=== PATIENT | female | born 1950 | race American Indian/Alaskan Native ===

== ENCOUNTER 2017-01-19 07:51 | Emergency (ER) | payer MEDICARE ==
[2017-01-19 08:11] VITALS: BP 130/81
--- NOTE | 2017-01-19 09:11 | Emergency Department Report ---
HPI - General Chief Complaint: Earache Time Seen by Provider: 01/19/17 08:58 - HPI HPI: Patient complaining of right ear pain for the past 7 days. She says she went to the [facility] and to follow-up in 2-3 weeks for this cerumen impaction. She was seen at 01/10/2017 and was given prescription for amoxicillin but she said is not helping and then her ear is straight and in. Faria 10. Fever chills. Denies any nausea or vomiting.. Denies any injury to the ear. Patient said that she does not have a primary care physician he only has a psychiatrist. He is requesting to be referred to a primary care physician. ED Past Medical Hx - Past Medical History Previous Medical History?: Yes Hx Hypertension: Yes Hx GERD: Yes Hx Psychiatric Treatment: Yes (bipolar disorder) Hx Dementia: Yes Additional medical history: Infections viral hepatis - Surgical History Past Surgical History?: No - Family History Family history: hypertension - Social History Smoking Status: Never Smoker Substance Use Type: None - Medications Home Medications: Home Medications Medication Instructions Recorded Confirmed Last Taken Type Cefdinir 300 mg PO BID #20. capsule 01/19/17 Unknown Rx Ciprofloxacin 0.2%(Nf) 4 drops OTIC BID #1 bottle 01/19/17 Unknown Rx [Ciprofloxacin Otic 0.2%(Nf)] ED Review of Systems ROS: Stated complaint: BLOCKAGE IN EAR Other details as noted in HPI Comment: All other systems reviewed and negative Constitutional: denies: chills, fever Eyes: denies: eye pain, eye discharge, vision change ENT: ear pain. denies: throat pain, dental pain, congestion Respiratory: no symptoms reported Cardiovascular: denies: chest pain, palpitations, edema, syncope Gastrointestinal: denies: nausea, vomiting Musculoskeletal: denies: back pain, arthralgia, myalgia Skin: denies: rash Neurological: denies: headache, weakness, numbness, paresthesias, confusion, abnormal gait, vertigo Physical Exam - Physical Exam Vital Signs: Vital Signs 01/19/17 07:57 Temperature 98.5 F Pulse Rate 70 Respiratory 16 Rate Blood Pressure 130/81 O2 Sat by Pulse 99 Oximetry General: This 66-year-old female well-nourished well-developed in no acute distress Physical Exam: Head: Normocephalic atraumatic Mouth: Moist, no pharyngeal exudate or erythema. Uvula is midline and oral airway is patent. No gingival enlargement or dental tenderness. No facial swelling. No peritonsillar abscesses. Neck: Supple, no C-spine tenderness, no tracheal deviation. Nontender to palpate. no adenopathy Ears: RT TM erythema and loss of bony landmarks . RT EAC with redness swelling . Rt tragus TTP. No drainage. LT TM and EAC with normal exam Eyes: Bilateral pupils equal and reactive to light, bilateral EOM intact. Bilateral sclera and conjunctiva without injection. Normal accommodation Nose: Mucosa moist, and NK appearance .maxillary and frontal sinus non-tender to palpate. Lungs: Clear to auscultate bilaterally no rhonchi wheezes or rales. Normal work of breathing extremity; No CCE. +2 pulses. No neurovascular compromise Cardiovascular: S1-S2, regular rate rhythm. No murmurs. Skin: clean Dry and intact no rash no lesions Psych: Normal mood and behavior ED Course Vital Signs 01/19/17 07:57 Temperature 98.5 F Pulse Rate 70 Respiratory 16 Rate Blood Pressure 130/81 O2 Sat by Pulse 99 Oximetry - Reevaluation(s) Reevaluation #1: 01/19/17 09:23 Given [place] 2/325 mg 2 tabs in the emergency room for right ear pain. ED Medical Decision Making - Medical Decision Making ED course: PT With this presentation of right ear pain. He was found to have right otitis media and otitis externa. Discussed treatment plan with this patient and she voiced understanding. 5/325 mg 2 tablet given in the emergency room for pain. This patient that well referred her to Dr. Gaby Reynoso for primary care to call today to schedule an appointment for a new patient visit. She decided home with prescription for Ceftin ear and ciprofloxacin Otic. Discharge home via Medical transport. Critical care attestation.: If time is entered above; I have spent that time in minutes in the direct care of this critically ill patient, excluding procedure time. ED Disposition Clinical Impression: Otalgia, right ear Otitis media Qualifiers: Otitis media type: unspecified Laterality: right Chronicity: unspecified Qualified Code(s): H66.91 - Otitis media, unspecified, right ear Otitis externa Qualifiers: Otitis externa type: unspecified type Laterality: right Chronicity: acute Qualified Code(s): H60.501 - Unspecified acute noninfective otitis externa, right ear Disposition: DC-01 TO HOME OR SELFCARE Is pt being admited?: No Does the pt Need Aspirin: No Condition: Stable Instructions: Otitis Externa (ED), Otitis Media (ED) Additional Instructions: Please see primary care physician referral and discharged Take Medication as prescribed Prescriptions: Cefdinir 300 mg PO BID #20. capsule Ciprofloxacin 0.2%(Nf) [Ciprofloxacin Otic 0.2%(Nf)] 4 drops OTIC BID #1 bottle Referrals: JOHN KING MD [Staff Physician] - 01/23/17
[2017-01-19] MEDS ORDERED: NORCO 5/325 PO ONE (09:23)
== END 2017-01-19 09:49 | disposition home or self-care (01) ==
LOC: ED 07:51
DX: H66.91 Otitis media, unspecified, right ear (principal); H60.501 Unspecified acute noninfective otitis externa, right ear; I10 Essential (primary) hypertension; K21.9 Gastro-esophageal reflux disease without esophagitis; F31.9 Bipolar disorder, unspecified; F03.90 Unspecified dementia, unspecified severity, without behavioral disturbance, psychotic disturbance, mood disturbance, and anxiety
CPT/HCPCS: 99283

== ENCOUNTER 2018-11-11 16:19 | Inpatient (IN) | payer MEDICARE ==
--- NOTE | 2018-11-11 16:56 | Emergency Department Report ---
ED Dizziness HPI - General Chief Complaint: Dizziness Stated Complaint: INA,WEAKNESS Time Seen by Provider: 11/11/18 16:45 Source: EMS Mode of arrival: Stretcher Limitations: No Limitations - History of Present Illness Initial Comments: Patient is a 67-year-old female that presents emergency room with complaints of dizziness, near syncope and unsteady gait that started this morning. Patient states that she took her nighttime psychiatric medications this morning by accident. Patient states that she normally takes lisinopril, Lasix, thyroid medication, GERD medication, potassium in the morning and normally takes Cogentin, Lamictal, Seroquel and Geodon at night. Patient states she actually took her nighttime meds this morning with all of her other blood pressure medications. Patient states she has felt dizzy and lightheaded since about 30 minutes after taking the medications. Patient states she is unable to walk due to an unsteady gait and near syncopal episodes when getting up. Patient denies chest pain. Patient complains of dyspnea on exertion. EMS report received. EMS states the patient was hypotensive and pale upon arrival MD Complaint: dizziness, lightheadedness, near syncope, difficulty walking Description: "room spinning", lightheadedness, off-balance, difficulty walking, near-syncope History of Same: No History of Trauma: No Severity: severe Improves With: rest Worsens With: movement, position, exertion Associated Symptoms: malaise, shortness of breath, weakness. denies: chest pain, confusion, cough, diaphoresis, fever/chills, loss of appetite, rash, seizure, syncope - Related Data Previous Rx's Medication Instructions Recorded Last Taken Type Cefdinir 300 mg PO BID #20. capsule 01/19/17 Unknown Rx Ciprofloxacin 0.2%(Nf) 4 drops OTIC BID #1 bottle 01/19/17 Unknown Rx [Ciprofloxacin Otic 0.2%(Nf)] Allergies Allergy/AdvReac Type Severity Reaction Status Date / Time No Known Allergies Allergy Verified 11/11/18 23:54 ED Review of Systems ROS: Stated complaint: INA,WEAKNESS Other details as noted in HPI Constitutional: malaise, weakness. denies: chills, fever Eyes: denies: eye pain, eye discharge, vision change ENT: denies: ear pain, throat pain Respiratory: SOB with exertion. denies: cough, wheezing Cardiovascular: denies: chest pain, palpitations Endocrine: no symptoms reported Gastrointestinal: denies: abdominal pain, nausea, diarrhea Genitourinary: denies: urgency, dysuria, discharge Musculoskeletal: denies: back pain, joint swelling, arthralgia Skin: denies: rash, lesions Neurological: weakness, abnormal gait. denies: headache, paresthesias Psychiatric: denies: anxiety, depression Hematological/Lymphatic: denies: easy bleeding, easy bruising ED Past Medical Hx - Past Medical History Previous Medical History?: Yes Hx Hypertension: Yes Hx GERD: Yes Hx Psychiatric Treatment: Yes (bipolar disorder) Hx Dementia: Yes Additional medical history: Infections viral hepatis - Surgical History Past Surgical History?: Yes - Family History Family history: no significant - Social History Smoking Status: Current Every Day Smoker Substance Use Type: None - Medications Home Medications: Home Medications Medication Instructions Recorded Confirmed Last Taken Type Cefdinir 300 mg PO BID #20. capsule 01/19/17 Unknown Rx Ciprofloxacin 0.2%(Nf) 4 drops OTIC BID #1 bottle 01/19/17 Unknown Rx [Ciprofloxacin Otic 0.2%(Nf)] ED Physical Exam - General Limitations: No Limitations General appearance: alert, in no apparent distress - Head Head exam: Present: atraumatic, normocephalic - Eye Eye exam: Present: normal appearance, PERRL Pupils: Present: normal accommodation - ENT ENT exam: Present: mucous membranes dry - Neck Neck exam: Present: normal inspection - Respiratory Respiratory exam: Present: normal lung sounds bilaterally. Absent: respiratory distress, wheezes, rales - Cardiovascular Cardiovascular Exam: Present: regular rate, normal rhythm. Absent: systolic murmur, diastolic murmur, rubs, gallop - GI/Abdominal GI/Abdominal exam: Present: soft, normal bowel sounds. Absent: distended, tenderness, guarding - Rectal Rectal exam: Present: deferred - Extremities Exam Extremities exam: Present: normal inspection - Back Exam Back exam: Present: normal inspection - Neurological Exam Neurological exam: Present: alert, oriented X3 - Psychiatric Psychiatric exam: Present: normal affect, normal mood - Skin Skin exam: Present: warm, dry, intact, normal color. Absent: rash ED Course Vital Signs 11/11/18 11/11/18 11/11/18 16:42 16:47 18:47 Temperature 98.6 F Pulse Rate 56 L 59 L 72 Respiratory 18 18 Rate Blood Pressure 106/59 Blood Pressure 104/65 [Right] O2 Sat by Pulse Oximetry 11/11/18 11/11/18 11/11/18 19:16 19:46 20:16 Temperature 97.5 F L Pulse Rate 54 L 53 L 69 Respiratory 12 11 L 12 Rate Blood Pressure 114/64 130/62 114/63 Blood Pressure 114/64 [Right] O2 Sat by Pulse 97 Oximetry 11/11/18 11/11/18 11/12/18 22:46 23:00 00:02 Temperature Pulse Rate 52 L 51 L 62 Respiratory 12 11 L 15 Rate Blood Pressure 114/63 114/63 Blood Pressure 139/73 [Right] O2 Sat by Pulse 96 Oximetry - Reevaluation(s) Reevaluation #1: 11/11/18 23:45 Discussed all results with patient. Patient agrees with plan of care and admission. - Consultations Consultation #1: Hospitalist consulted for admission. Hospitalist to admit patient and assume care of patient. 11/11/18 23:45 - EJ/Peripheral Line Neck R Time Out Performed: Yes Indications: nurses unable to establis, multiple IV sites needed Skin Cleansed in Sterile Fashion: Yes Size: 20 Dressing Placed: Tegaderm Patient Tolerated Procedure: well ED Medical Decision Making - Lab Data Result diagrams: 11/11/18 18:15 11/11/18 18:15 - EKG Data -: EKG Interpreted by Me EKG shows normal: sinus rhythm, axis, intervals, QRS complexes, ST-T waves Rate: normal - EKG Data Interpretation: [facility] - Radiology Data Radiology results: report reviewed, image reviewed interpreted by me: Negative chest x-ray PROCEDURE: CT ANGIO CHEST TECHNIQUE: Computerized tomographic angiography of the chest was performed after the IV injection of iodinated nonionic contrast including image processing. The image data was postprocessed using 2-dimensional multiplanar reformatted (MPR) and 3-dimensional (MIP and/or volume rendered) techniques. Automated exposure control, adjustment of mA and/or kV according to patient size, or iterative reconstruction dose optimization techniques were utilized. CT DOSE LENGTH PRODUCT: 781.9 mGycm HISTORY: syncope. elevated d-dimer COMPARISONS: None . FINDINGS: There is a loculated lucency. No obvious pulmonary arterial filling defects are identified. Aorta is of normal caliber without evidence of the hilar structures are within normal limits. There is no lymphadenopathy. Thyroid demonstrates normal density. Bilateral lungs and pleural spaces.. Liver demonstrates nodular outlines consistent with cirrhosis. There are a few luis e cified nodules in the most likely representing calcified resendez. Mild to moderate degree of splenome robert is identified with varices. Multiple small calculi are noted in the gallbladder. IMPRESSION: There is suboptimal opacification of pulmonary arterial tree. No obvious evidence of pulmonary embolism. Cirrhosis is noted with splenomegaly and varices Cholelithiasis - Medical Decision Making Patient is a 67-year-old female that presents emergency room with complaints of dizziness and medication error. Patient stated she took her nighttime psychiatric medications in the morning with all her other blood pressure medications which caused her to be dizzy and had near syncope and hypotensive. Patient required saline to support her blood pressure. Patient noted to have an elevated d-dimer and a CTA was done. CTA was negative. Chest x-ray negative. Labs unremarkable. Patient responded well to treatment. Patient will be admitted to the hospitalist service for further evaluation and treatment. Patient agrees to plan of care. Patient found to have a UTI and given antibiotics. - Differential Diagnosis dizziness. Medication error. Near-syncope. PE Critical Care Time: Yes Critical care attestation.: If time is entered above; I have spent that time in minutes in the direct care of this critically ill patient, excluding procedure time. Critical Care Time: 45 minutes ED Disposition Clinical Impression: Dizziness, Medication error, Near syncope, Elevated d-dimer Hypotension Qualifiers: Hypotension type: unspecified hypotension type Qualified Code(s): I95.9 - Hypotension, unspecified UTI (urinary tract infection) Qualifiers: Urinary tract infection type: acute cystitis Hematuria presence: with hematuria Qualified Code(s): N30.01 - Acute cystitis with hematuria Disposition: OP ADMIT IP TO THIS HOSP Is pt being admited?: Yes Does the pt Need Aspirin: No Condition: Critical Time of Disposition: 23:40
[2018-11-11] MEDS ORDERED: NACL 0.9% 1000 ML 1,000 ML IV ONE (16:59)
[2018-11-11 19:05] LABS: Hematocrit 37.7 % (30.3-42.9); Hemoglobin 13.4 gm/dl (10.1-14.3); Mean Corpuscular HGB Conc 35 % (30-34); Mean Corpuscular Volume 95 fl (79-97); Red Blood Count 3.99 M/mm3 (3.65-5.03); Red Cell Distribution Width 15.5 % (13.2-15.2)
--- NOTE | 2018-11-11 19:09 | XRay Report ---
PROCEDURE: XR CHEST 1V AP HISTORY: Lightheadedness/Dizziness FINDINGS: Single frontal view of the chest was acquired. The heart is top normal in size. The lungs a ppear clear. The pleura and mediastinum are within normal limits. IMPRESSION: No active disease in the chest This document is electronically signed by Juan Pablo Hernandes MD., November 11 2018 07:07:47 PM ET
[2018-11-11 19:20] LABS: Creatine Kinase MB 2.4 ng/mL (0.0-4.0)
[2018-11-11 19:24] LABS: Alanine Aminotransferase 17 units/L (7-56); Albumin 3.6 g/dL (3.9-5); BUN/Creatinine Ratio 19; Blood Urea Nitrogen 13 mg/dL (7-17); Calcium 8.7 mg/dL (8.4-10.2); Hemolysis Index 8
[2018-11-11 19:58] LABS: Total Cells Counted 100
[2018-11-11 19:59] LABS: Ovalocytes 1+; Poikilocytosis Few
[2018-11-11 20:00] LABS: Platelet Count 27 K/mm3 (140-440); Platelet Estimate Appears Decreased
[2018-11-11 21:01] LABS: Bacteria,Urine 1+ /HPF (Negative); Bilirubin,Urine NEG (Negative); Blood,Urine NEG (Negative); Color,Urine Yellow (Yellow); Mucus,Urine FEW /HPF; Protein,Urine <15 mg/dL mg/dL (Negative); Urobilinogen,Urine < 2.0 mg/dL (<2.0)
[2018-11-11 21:09] LABS: Amphetamine Screen,Urine PRESUMPTIVE NEGATIVE; Benzodiazepines Screen,Urine PRESUMPTIVE NEGATIVE; Cannabinoid Screen,Urine PRESUMPTIVE NEGATIVE; Cocaine Screen,Urine PRESUMPTIVE NEGATIVE; Methadone Screen,Urine PRESUMPTIVE NEGATIVE; Opiate Screen,Urine PRESUMPTIVE NEGATIVE
--- NOTE | 2018-11-11 21:59 | Cat Scan Report ---
PROCEDURE: CT ANGIO CHEST TECHNIQUE: Computerized tomographic angiography of the chest was performed after the IV injection of iodinated nonionic contrast including image processing. The image data was postprocessed using 2-di mensional multiplanar reformatted (MPR) and 3-dimensional (MIP and/or volume rendered) techniques. Au tomated exposure control, adjustment of mA and/or kV according to patient size, or iterative reconstr uction dose optimization techniques were utilized. CT DOSE LENGTH PRODUCT: 781.9 mGycm HISTORY: syncope. elevated d-dimer COMPARISONS: None . FINDINGS: There is a loculated lucency. No obvious pulmonary arterial filling defects are identified. Aorta is of normal caliber without evidence of the hilar structures are within normal limits. There is no lymp hadenopathy. Thyroid demonstrates normal density. Bilateral lungs and pleural spaces.. Liver demonstr ates nodular outlines consistent with cirrhosis. There are a few calcified nodules in the most likely representing calcified resendez. Mild to moderate degree of splenomegaly is identified with varices. Mu ltiple small calculi are noted in the gallbladder. IMPRESSION: There is suboptimal opacification of pulmonary arterial tree. No obvious evidence of pulm onary embolism. Cirrhosis is noted with splenomegaly and varices Cholelithiasis This document is electronically signed by Joe Cristina MD., November 11 2018 09:57:56 PM ET
[2018-11-11] MEDS ORDERED: MAXIPIME/NS 1 GM/100 ML 1 GM/100 ML BAG IV ONE (23:40)
[2018-11-11] MEDS ORDERED: SODIUM CHLORIDE FLUSH SYRINGE 10 ML IV PRN (23:43)
[2018-11-11] MEDS ORDERED: ZOFRAN IV PRN (23:43)
[2018-11-11] MEDS ORDERED: TYLENOL PO PRN (23:43)
[2018-11-11] MEDS ORDERED: DILAUDID ONE (23:51)
[2018-11-11] MEDS ORDERED: DILAUDID IV ONE (23:52)
--- NOTE | 2018-11-12 00:08 | History and Physical Report ---
History of Present Illness Date of examination: 11/11/18 Date of admission: 11/11/2018 Chief complaint: "I fell" History of present illness: Patient is a 67-year-old female with history of bipolar disorder and cirrhosis who presented to the ED via EMS on account of a fall. Patient stated that she mistakenly took her psych medications together with her blood pressure medications in the morning as opposed to in the evening. Subsequently, she started feeling dizziness with leg weakness and then fell, landing on her right side without hitting her head on the floor. She denies syncope or loss of consciousness. No headaches, nausea, vomiting, chest pain, shortness of breath, palpitation, cough, sore throat, runny nose or congestion, fever, chills, leg swelling, orthopnea or PND. She denies abdominal pain, constipation, diarrhea, dysuria or frequency. She has chronic back pain. EMS reported that the patient was hypotensive on arrival. Past History Past Medical History: hypertension, hypothyroidism, other (bipolar disorder, cirrhosis of the liver secondary to chronic hepatitis C virus infection) Past Surgical History: Other (neck and left shoulder surgeries) Social history: smoking (patient has 8 years history of cigarette smoking. She currently smokes few sticks per day), other (she denies alcohol or illicit drug use) Family history: other (reviewed and noncontributory) Medications and Allergies Allergies Allergy/AdvReac Type Severity Reaction Status Date / Time No Known Allergies Allergy Verified 11/11/18 23:54 Home Medications Medication Instructions Recorded Confirmed Last Taken Type Cefdinir 300 mg PO BID #20. capsule 01/19/17 Unknown Rx Ciprofloxacin 0.2%(Nf) 4 drops OTIC BID #1 bottle 01/19/17 Unknown Rx [Ciprofloxacin Otic 0.2%(Nf)] Active Meds: Active Medications Acetaminophen (Tylenol) 650 mg PO Q4H PRN PRN Reason: Pain MILD(1-3)/Fever >100.5/MARK Cefepime HCl (Maxipime/Ns 1 Gm/100 Ml) 1 gm in 100 mls @ 200 mls/hr IV ONCE ONE; Protocol Stop: 11/12/18 00:09 Last Admin: 11/12/18 00:02 Dose: 200 mls/hr Documented by: Ceftriaxone Sodium (Rocephin/Ns 1 Gm/50 Ml) 1 gm in 50 mls @ 100 mls/hr IV Q24HR CONSTANCE; Protocol Sodium Chloride (Nacl 0.9% 1000 Ml) 1,000 mls @ 100 mls/hr IV DIRECT CONSTANCE Ondansetron HCl (Zofran) 4 mg IV Q8H PRN PRN Reason: Nausea And Vomiting Sodium Chloride (Sodium Chloride Flush Syringe 10 Ml) 10 ml IV BID CONSTANCE Sodium Chloride (Sodium Chloride Flush Syringe 10 Ml) 10 ml IV PRN PRN PRN Reason: LINE FLUSH Review of Systems All systems: negative (except as documented in the HPI, all other systems were reviewed and negative) Exam - Constitutional Vitals: Temp Pulse Resp BP Pulse Ox 97.5 F L 62 15 139/73 96 11/11/18 19:46 11/12/18 00:02 11/12/18 00:02 11/12/18 00:02 11/12/18 00:02 General appearance: Present: no acute distress, obese - EENT Eyes: Present: PERRL, EOM intact ENT: hearing intact, clear oral mucosa - Neck Neck: Present: supple, normal ROM - Respiratory Respiratory effort: normal Respiratory: bilateral: CTA - Cardiovascular Rhythm: regular Heart Sounds: Present: S1 & S2. Absent: rub, click - Extremities Extremities: No edema Peripheral Pulses: within normal limits - Abdominal General gastrointestinal: Present: soft, non-tender, non-distended, normal bowel sounds Female genitourinary: Present: deferred - Integumentary Integumentary: Present: clear, warm, dry - Musculoskeletal Musculoskeletal: gait normal, strength equal bilaterally - Psychiatric Psychiatric: appropriate mood/affect, intact judgment & insight - Neurologic Neurologic: CNII-XII intact, moves all extremities Results - Labs CBC & Chem 7: 11/11/18 18:15 11/11/18 18:15 Labs: Laboratory Last Values WBC 2.0 K/mm3 (4.5-11.0) L 11/11/18 18:15 RBC 3.99 M/mm3 (3.65-5.03) 11/11/18 18:15 Hgb 13.4 gm/dl (10.1-14.3) 11/11/18 18:15 Hct 37.7 % (30.3-42.9) 11/11/18 18:15 MCV 95 fl (79-97) 11/11/18 18:15 MCH 34 pg (28-32) H 11/11/18 18:15 MCHC 35 % (30-34) H 11/11/18 18:15 RDW 15.5 % (13.2-15.2) H 11/11/18 18:15 Plt Count 27 K/mm3 (140-440) L 11/11/18 18:15 Add Manual Diff Complete 11/11/18 18:15 Total Counted 100 11/11/18 18:15 Seg Neuts % (Manual) 68.0 % (40.0-70.0) 11/11/18 18:15 Band Neutrophils % 0 % 11/11/18 18:15 Lymphocytes % (Manual) 18.0 % (13.4-35.0) 11/11/18 18:15 Reactive Lymphs % (Man) 0 % 11/11/18 18:15 Monocytes % (Manual) 8.0 % (0.0-7.3) H 11/11/18 18:15 Eosinophils % (Manual) 4.0 % (0.0-4.3) 11/11/18 18:15 Basophils % (Manual) 2.0 % (0.0-1.8) H 11/11/18 18:15 Metamyelocytes % 0 % 11/11/18 18:15 Myelocytes % 0 % 11/11/18 18:15 Promyelocytes % 0 % 11/11/18 18:15 Blast Cells % 0 % 11/11/18 18:15 Nucleated RBC % Not Reportable 11/11/18 18:15 Seg Neutrophils # Man 1.4 K/mm3 (1.8-7.7) L 11/11/18 18:15 Band Neutrophils # 0.0 K/mm3 11/11/18 18:15 Lymphocytes # (Manual) 0.4 K/mm3 (1.2-5.4) L 11/11/18 18:15 Abs React Lymphs (Man) 0.0 K/mm3 11/11/18 18:15 Monocytes # (Manual) 0.2 K/mm3 (0.0-0.8) 11/11/18 18:15 Eosinophils # (Manual) 0.1 K/mm3 (0.0-0.4) 11/11/18 18:15 Basophils # (Manual) 0.0 K/mm3 (0.0-0.1) 11/11/18 18:15 Metamyelocytes # 0.0 K/mm3 11/11/18 18:15 Myelocytes # 0.0 K/mm3 11/11/18 18:15 Promyelocytes # 0.0 K/mm3 11/11/18 18:15 Blast Cells # 0.0 K/mm3 11/11/18 18:15 WBC Morphology Not Reportable 11/11/18 18:15 Hypersegmented Neuts Not Reportable 11/11/18 18:15 Hyposegmented Neuts Not Reportable 11/11/18 18:15 Hypogranular Neuts Not Reportable 11/11/18 18:15 Smudge Cells Not Reportable 11/11/18 18:15 Toxic Granulation Not Reportable 11/11/18 18:15 Toxic Vacuolation Not Reportable 11/11/18 18:15 Dohle Bodies Not Reportable 11/11/18 18:15 Pelger-Huet Anomaly Not Reportable 11/11/18 18:15 Preeti Rods Not Reportable 11/11/18 18:15 Platelet Estimate Appears decreased 11/11/18 18:15 Clumped Platelets Not Reportable 11/11/18 18:15 Plt Clumps, EDTA Not Reportable 11/11/18 18:15 Large Platelets Not Reportable 11/11/18 18:15 Giant Platelets Not Reportable 11/11/18 18:15 Platelet Satelliting Not Reportable 11/11/18 18:15 Plt Morphology Comment Not Reportable 11/11/18 18:15 RBC Morphology Not Reportable 11/11/18 18:15 Dimorphic RBCs Not Reportable 11/11/18 18:15 Polychromasia Not Reportable 11/11/18 18:15 Hypochromasia Not Reportable 11/11/18 18:15 Poikilocytosis Few 11/11/18 18:15 Anisocytosis Not Reportable 11/11/18 18:15 Microcytosis Not Reportable 11/11/18 18:15 Macrocytosis Not Reportable 11/11/18 18:15 Spherocytes Not Reportable 11/11/18 18:15 Pappenheimer Bodies Not Reportable 11/11/18 18:15 Sickle Cells Not Reportable 11/11/18 18:15 Target Cells Not Reportable 11/11/18 18:15 Tear Drop Cells Not Reportable 11/11/18 18:15 Ovalocytes 1+ 11/11/18 18:15 Helmet Cells Not Reportable 11/11/18 18:15 [place] Bodies Not Reportable 11/11/18 18:15 [place] Rings Not Reportable 11/11/18 18:15 [place] Cells Not Reportable 11/11/18 18:15 Bite Cells Not Reportable 11/11/18 18:15 Crenated Cell Not Reportable 11/11/18 18:15 Elliptocytes Not Reportable 11/11/18 18:15 Acanthocytes (Spur) Not Reportable 11/11/18 18:15 Rouleaux Not Reportable 11/11/18 18:15 Hemoglobin C Crystals Not Reportable 11/11/18 18:15 Schistocytes Not Reportable 11/11/18 18:15 Malaria parasites Not Reportable 11/11/18 18:15 Willie Bodies Not Reportable 11/11/18 18:15 Hem Pathologist Commnt No 11/11/18 18:15 D-Dimer 444.11 ng/mlDDU (0-234) H 11/11/18 18:15 Sodium 142 mmol/L (137-145) 11/11/18 18:15 Potassium 4.1 mmol/L (3.6-5.0) 11/11/18 18:15 Chloride 109.3 mmol/L (98-107) H 11/11/18 18:15 Carbon Dioxide 18 mmol/L (22-30) L 11/11/18 18:15 Anion Gap 19 mmol/L 11/11/18 18:15 BUN 13 mg/dL (7-17) 11/11/18 18:15 Creatinine 0.7 mg/dL (0.7-1.2) 11/11/18 18:15 Estimated GFR > 60 ml/min 11/11/18 18:15 BUN/Creatinine Ratio 19 % 11/11/18 18:15 Glucose 98 mg/dL (65-100) 11/11/18 18:15 Lactic Acid 1.80 mmol/L (0.7-2.0) 11/11/18 18:15 Calcium 8.7 mg/dL (8.4-10.2) 11/11/18 18:15 Total Bilirubin 1.70 mg/dL (0.1-1.2) H 11/11/18 18:15 AST 29 units/L (5-40) 11/11/18 18:15 ALT 17 units/L (7-56) 11/11/18 18:15 Alkaline Phosphatase 96 units/L (35-129) 11/11/18 18:15 Total Creatine Kinase 98 units/L (30-135) 11/11/18 18:15 CK-MB (CK-2) 2.4 ng/mL (0.0-4.0) 11/11/18 18:15 CK-MB (CK-2) Rel Index 2.4 (0-4) 11/11/18 18:15 Troponin T < 0.010 ng/mL (0.00-0.029) 11/11/18 18:15 Total Protein 5.5 g/dL (6.3-8.2) L 11/11/18 18:15 Albumin 3.6 g/dL (3.9-5) L 11/11/18 18:15 Albumin/Globulin Ratio 1.9 % 11/11/18 18:15 Urine Color Yellow (Yellow) 11/11/18 Unknown Urine Turbidity Clear (Clear) 11/11/18 Unknown Urine pH 5.0 (5.0-7.0) 11/11/18 Unknown Ur Specific [place] 1.012 (1.003-1.030) 11/11/18 Unknown Urine Protein <15 mg/dl mg/dL (Negative) 11/11/18 Unknown Urine Glucose (UA) Neg mg/dL (Negative) 11/11/18 Unknown Urine Ketones Neg mg/dL (Negative) 11/11/18 Unknown Urine Blood Neg (Negative) 11/11/18 Unknown Urine Nitrite Neg (Negative) 11/11/18 Unknown Urine Bilirubin Neg (Negative) 11/11/18 Unknown Urine Urobilinogen < 2.0 mg/dL (<2.0) 11/11/18 Unknown Ur Leukocyte Esterase Lg (Negative) 11/11/18 Unknown Urine WBC (Auto) 59.0 /HPF (0.0-6.0) H 11/11/18 Unknown Urine RBC (Auto) 5.0 /HPF (0.0-6.0) 11/11/18 Unknown U Epithel Cells (Auto) 3.0 /HPF (0-13.0) 11/11/18 Unknown Urine Bacteria (Auto) 1+ /HPF (Negative) 11/11/18 Unknown Urine Mucus Few /HPF 11/11/18 Unknown Urine Opiates Screen Presumptive negative 11/11/18 Unknown Urine Methadone Screen Presumptive negative 11/11/18 Unknown Ur Barbiturates Screen Presumptive negative 11/11/18 Unknown Ur Phencyclidine Scrn Presumptive negative 11/11/18 Unknown Ur Amphetamines Screen Presumptive negative 11/11/18 Unknown U Benzodiazepines Scrn Presumptive negative 11/11/18 Unknown Urine Cocaine Screen Presumptive negative 11/11/18 Unknown U Marijuana (THC) Screen Presumptive negative 11/11/18 Unknown Drugs of Abuse Note Disclamer 11/11/18 Unknown Assessment and Plan Assessment and plan: Orthostatic hypotension -Medication induced -Blood pressure responded to IV fluid in the ED, will monitor UTI -On IV antibiotic with Rocephin -Urine culture pending Metabolic acidosis -On IV fluid, will monitor bicarbonate level History of chronic hepatitis C virus infection -Status post treatment, resolved Cirrhosis of the liver -Secondary to the chronic hepatitis C virus infection -For outpatient follow-up Leukopenia -Likely secondary to the cirrhosis, will monitor level Acute on chronic thrombocytopenia -Likely secondary to the cirrhosis -Per patient, her baseline platelet level is between 44-50,000 -No evidence of active bleeding, will monitor level Elevated d-dimer -CTA chest negative for acute PE Hypothyroidism -Continue Synthroid Bipolar disorder -Continue home medications Obesity with BMI of 36.2 -Lifestyle modification recommended DVT prophylaxis with SCD due to the thrombocytopenia Disposition: For discharge when medically stable Time spent: 38 minutes
[2018-11-12] MEDS: NACL 0.9% 1000 ML 1,000 ML IV SCH ×3 (01:25→22:52)
--- NOTE | 2018-11-12 08:22 | Progress Note ---
Assessment and Plan Assessment and plan: --Orthostatic hypotension -Medication induced -Blood pressure responded to IV fluid in the ED, will monitor --UTI -On IV antibiotic with Rocephin -Urine culture pending --Metabolic acidosis -On IV fluid, will monitor bicarbonate level --History of chronic hepatitis C virus infection -Status post treatment, resolved --Cirrhosis of the liver -Secondary to the chronic hepatitis C virus infection -For outpatient follow-up --Leukopenia -Likely secondary to the cirrhosis, will monitor level --Acute on chronic thrombocytopenia -Likely secondary to the cirrhosis -Per patient, her baseline platelet level is between 44-50,000 -No evidence of active bleeding, will monitor level --Elevated d-dimer -CTA chest negative for acute PE --Hypothyroidism -Continue Synthroid --Bipolar disorder -Continue home medications --Obesity with BMI of 36.2 -Lifestyle modification recommended DVT prophylaxis with SCD due to the thrombocytopenia Disposition: For discharge when medically stable Time spent: 38 minutes History Interval history: Patient seen and examined medical records reviewed Patient is admitted with history of fall Patient feels better no new complaints Denies any headache or dizziness Vital signs reviewed Hospitalist Physical - Constitutional Vitals: Temp Pulse Resp BP Pulse Ox 98.0 F 57 L 18 115/65 96 11/12/18 01:20 11/12/18 01:20 11/12/18 01:20 11/12/18 01:20 11/12/18 01:20 General appearance: Present: no acute distress, well-nourished, obese - EENT Eyes: Present: PERRL, EOM intact - Neck Neck: Present: supple, normal ROM - Respiratory Respiratory effort: normal Respiratory: bilateral: diminished, negative: rales, rhonchi, wheezing - Cardiovascular Rhythm: regular Heart Sounds: Present: S1 & S2 - Extremities Extremities: no ischemia, No edema - Abdominal General gastrointestinal: soft, non-tender, non-distended, normal bowel sounds - Integumentary Integumentary: Present: clear, warm - Psychiatric Psychiatric: appropriate mood/affect, cooperative - Neurologic Neurologic: CNII-XII intact, moves all extremities Results - Labs CBC & Chem 7: 11/12/18 08:19 11/12/18 08:19 Labs: Laboratory Last Values WBC 2.0 K/mm3 (4.5-11.0) L 11/11/18 18:15 RBC 3.99 M/mm3 (3.65-5.03) 11/11/18 18:15 Hgb 13.4 gm/dl (10.1-14.3) 11/11/18 18:15 Hct 37.7 % (30.3-42.9) 11/11/18 18:15 MCV 95 fl (79-97) 11/11/18 18:15 MCH 34 pg (28-32) H 11/11/18 18:15 MCHC 35 % (30-34) H 11/11/18 18:15 RDW 15.5 % (13.2-15.2) H 11/11/18 18:15 Plt Count 27 K/mm3 (140-440) L 11/11/18 18:15 Add Manual Diff Complete 11/11/18 18:15 Total Counted 100 11/11/18 18:15 Seg Neuts % (Manual) 68.0 % (40.0-70.0) 11/11/18 18:15 Band Neutrophils % 0 % 11/11/18 18:15 Lymphocytes % (Manual) 18.0 % (13.4-35.0) 11/11/18 18:15 Reactive Lymphs % (Man) 0 % 11/11/18 18:15 Monocytes % (Manual) 8.0 % (0.0-7.3) H 11/11/18 18:15 Eosinophils % (Manual) 4.0 % (0.0-4.3) 11/11/18 18:15 Basophils % (Manual) 2.0 % (0.0-1.8) H 11/11/18 18:15 Metamyelocytes % 0 % 11/11/18 18:15 Myelocytes % 0 % 11/11/18 18:15 Promyelocytes % 0 % 11/11/18 18:15 Blast Cells % 0 % 11/11/18 18:15 Nucleated RBC % Not Reportable 11/11/18 18:15 Seg Neutrophils # Man 1.4 K/mm3 (1.8-7.7) L 11/11/18 18:15 Band Neutrophils # 0.0 K/mm3 11/11/18 18:15 Lymphocytes # (Manual) 0.4 K/mm3 (1.2-5.4) L 11/11/18 18:15 Abs React Lymphs (Man) 0.0 K/mm3 11/11/18 18:15 Monocytes # (Manual) 0.2 K/mm3 (0.0-0.8) 11/11/18 18:15 Eosinophils # (Manual) 0.1 K/mm3 (0.0-0.4) 11/11/18 18:15 Basophils # (Manual) 0.0 K/mm3 (0.0-0.1) 11/11/18 18:15 Metamyelocytes # 0.0 K/mm3 11/11/18 18:15 Myelocytes # 0.0 K/mm3 11/11/18 18:15 Promyelocytes # 0.0 K/mm3 11/11/18 18:15 Blast Cells # 0.0 K/mm3 11/11/18 18:15 WBC Morphology Not Reportable 11/11/18 18:15 Hypersegmented Neuts Not Reportable 11/11/18 18:15 Hyposegmented Neuts Not Reportable 11/11/18 18:15 Hypogranular Neuts Not Reportable 11/11/18 18:15 Smudge Cells Not Reportable 11/11/18 18:15 Toxic Granulation Not Reportable 11/11/18 18:15 Toxic Vacuolation Not Reportable 11/11/18 18:15 Dohle Bodies Not Reportable 11/11/18 18:15 Pelger-[place]uet Anomaly Not Reportable 11/11/18 18:15 Preeti Rods Not Reportable 11/11/18 18:15 Platelet Estimate Appears decreased 11/11/18 18:15 Clumped Platelets Not Reportable 11/11/18 18:15 Plt Clumps, EDTA Not Reportable 11/11/18 18:15 Large Platelets Not Reportable 11/11/18 18:15 Giant Platelets Not Reportable 11/11/18 18:15 Platelet Satelliting Not Reportable 11/11/18 18:15 Plt Morphology Comment Not Reportable 11/11/18 18:15 RBC Morphology Not Reportable 11/11/18 18:15 Dimorphic RBCs Not Reportable 11/11/18 18:15 Polychromasia Not Reportable 11/11/18 18:15 Hypochromasia Not Reportable 11/11/18 18:15 Poikilocytosis Few 11/11/18 18:15 Anisocytosis Not Reportable 11/11/18 18:15 Microcytosis Not Reportable 11/11/18 18:15 Macrocytosis Not Reportable 11/11/18 18:15 Spherocytes Not Reportable 11/11/18 18:15 Pappenheimer Bodies Not Reportable 11/11/18 18:15 Sickle Cells Not Reportable 11/11/18 18:15 Target Cells Not Reportable 11/11/18 18:15 Tear Drop Cells Not Reportable 11/11/18 18:15 Ovalocytes 1+ 11/11/18 18:15 Helmet Cells Not Reportable 11/11/18 18:15 [place] Bodies Not Reportable 11/11/18 18:15 [place] Rings Not Reportable 11/11/18 18:15 [place] Cells Not Reportable 11/11/18 18:15 Bite Cells Not Reportable 11/11/18 18:15 Crenated Cell Not Reportable 11/11/18 18:15 Elliptocytes Not Reportable 11/11/18 18:15 Acanthocytes (Spur) Not Reportable 11/11/18 18:15 Rouleaux Not Reportable 11/11/18 18:15 Hemoglobin C Crystals Not Reportable 11/11/18 18:15 Schistocytes Not Reportable 11/11/18 18:15 Malaria parasites Not Reportable 11/11/18 18:15 Willie Bodies Not Reportable 11/11/18 18:15 Hem Pathologist Commnt No 11/11/18 18:15 D-Dimer 444.11 ng/mlDDU (0-234) H 11/11/18 18:15 Sodium 142 mmol/L (137-145) 11/11/18 18:15 Potassium 4.1 mmol/L (3.6-5.0) 11/11/18 18:15 Chloride 109.3 mmol/L (98-107) H 11/11/18 18:15 Carbon Dioxide 18 mmol/L (22-30) L 11/11/18 18:15 Anion Gap 19 mmol/L 11/11/18 18:15 BUN 13 mg/dL (7-17) 11/11/18 18:15 Creatinine 0.7 mg/dL (0.7-1.2) 11/11/18 18:15 Estimated GFR > 60 ml/min 11/11/18 18:15 BUN/Creatinine Ratio 19 % 11/11/18 18:15 Glucose 98 mg/dL (65-100) 11/11/18 18:15 Lactic Acid 1.80 mmol/L (0.7-2.0) 11/11/18 18:15 Calcium 8.7 mg/dL (8.4-10.2) 11/11/18 18:15 Total Bilirubin 1.70 mg/dL (0.1-1.2) H 11/11/18 18:15 AST 29 units/L (5-40) 11/11/18 18:15 ALT 17 units/L (7-56) 11/11/18 18:15 Alkaline Phosphatase 96 units/L (35-129) 11/11/18 18:15 Total Creatine Kinase 98 units/L (30-135) 11/11/18 18:15 CK-MB (CK-2) 2.4 ng/mL (0.0-4.0) 11/11/18 18:15 CK-MB (CK-2) Rel Index 2.4 (0-4) 11/11/18 18:15 Troponin T < 0.010 ng/mL (0.00-0.029) 11/11/18 18:15 Total Protein 5.5 g/dL (6.3-8.2) L 11/11/18 18:15 Albumin 3.6 g/dL (3.9-5) L 11/11/18 18:15 Albumin/Globulin Ratio 1.9 % 11/11/18 18:15 Urine Color Yellow (Yellow) 11/11/18 Unknown Urine Turbidity Clear (Clear) 11/11/18 Unknown Urine pH 5.0 (5.0-7.0) 11/11/18 Unknown Ur Specific [place] 1.012 (1.003-1.030) 11/11/18 Unknown Urine Protein <15 mg/dl mg/dL (Negative) 11/11/18 Unknown Urine Glucose (UA) Neg mg/dL (Negative) 11/11/18 Unknown Urine Ketones Neg mg/dL (Negative) 11/11/18 Unknown Urine Blood Neg (Negative) 11/11/18 Unknown Urine Nitrite Neg (Negative) 11/11/18 Unknown Urine Bilirubin Neg (Negative) 11/11/18 Unknown Urine Urobilinogen < 2.0 mg/dL (<2.0) 11/11/18 Unknown Ur Leukocyte Esterase Lg (Negative) 11/11/18 Unknown Urine WBC (Auto) 59.0 /HPF (0.0-6.0) H 11/11/18 Unknown Urine RBC (Auto) 5.0 /HPF (0.0-6.0) 11/11/18 Unknown U Epithel Cells (Auto) 3.0 /HPF (0-13.0) 11/11/18 Unknown Urine Bacteria (Auto) 1+ /HPF (Negative) 11/11/18 Unknown Urine Mucus Few /HPF 11/11/18 Unknown Urine Opiates Screen Presumptive negative 11/11/18 Unknown Urine Methadone Screen Presumptive negative 11/11/18 Unknown Ur Barbiturates Screen Presumptive negative 11/11/18 Unknown Ur Phencyclidine Scrn Presumptive negative 11/11/18 Unknown Ur Amphetamines Screen Presumptive negative 11/11/18 Unknown U Benzodiazepines Scrn Presumptive negative 11/11/18 Unknown Urine Cocaine Screen Presumptive negative 11/11/18 Unknown U Marijuana (THC) Screen Presumptive negative 11/11/18 Unknown Drugs of Abuse Note Disclamer 11/11/18 Unknown Active Medications - Current Medications Current Medications: Generic Name Dose Route Start Last Admin Trade Name Freq PRN Reason Stop Dose Admin Acetaminophen 650 mg 11/11/18 23:43 Tylenol PO Q4H PRN Pain MILD(1-3)/Fever >100.5/MARK Acetaminophen/Hydrocodone Bitart 1 each 11/12/18 00:08 [place] 10/325 PO Q4H PRN Pain, Moderate (4-6) Ceftriaxone Sodium 1 gm in 50 mls @ 100 mls/hr 11/12/18 10:00 Rocephin/Ns 1 Gm/50 Ml IV Q24HR CONSTANCE Protocol Sodium Chloride 1,000 mls @ 100 mls/hr 11/11/18 23:45 11/12/18 01:25 Nacl 0.9% 1000 Ml IV 100 mls/hr DIRECT CONSTANCE Administration Ondansetron HCl 4 mg 11/11/18 23:43 Zofran IV Q8H PRN Nausea And Vomiting Sodium Chloride 10 ml 11/12/18 10:00 Sodium Chloride Flush Syringe 10 Ml IV BID CONSTANCE Sodium Chloride 10 ml 11/11/18 23:43 Sodium Chloride Flush Syringe 10 Ml IV PRN PRN LINE FLUSH
[2018-11-12] MEDS: NORCO 10/325 PO PRN ×2 (08:35→19:19)
[2018-11-12 09:16] LABS: Hematocrit 36.3 % (30.3-42.9); Hemoglobin 12.7 gm/dl (10.1-14.3); Mean Corpuscular HGB Conc 35 % (30-34); Mean Corpuscular Volume 94 fl (79-97); Red Blood Count 3.86 M/mm3 (3.65-5.03); Red Cell Distribution Width 15.6 % (13.2-15.2)
[2018-11-12 09:18] LABS: Platelet Count 30 K/mm3 (140-440)
[2018-11-12 09:39] LABS: BUN/Creatinine Ratio 17; Blood Urea Nitrogen 12 mg/dL (7-17); Calcium 8.7 mg/dL (8.4-10.2); Hemolysis Index 9
[2018-11-12] MEDS: ROCEPHIN/NS 1 GM/50 ML 1 GM/50 ML BAG IV SCH (09:39)
[2018-11-12] MEDS: SODIUM CHLORIDE FLUSH SYRINGE 10 ML IV SCH ×2 (09:45→21:34)
[2018-11-12] MEDS: SYNTHROID PO SCH (09:50)
[2018-11-12] MEDS: PROTONIX PO SCH (09:51)
[2018-11-12] MEDS: COGENTIN PO SCH ×2 (09:52→21:29)
[2018-11-12] MEDS: LASIX PO SCH (09:52)
[2018-11-12] MEDS: ZESTRIL PO SCH (09:53)
[2018-11-12] MEDS ORDERED: NON-FORMULARY (Seroquel 50 MG) PO SCH (10:00)
[2018-11-13] MEDS ORDERED: BENADRYL PO PRN (00:41)
[2018-11-13] MEDS: SYNTHROID PO SCH (05:36)
[2018-11-13 06:33] LABS: BUN/Creatinine Ratio 17; Blood Urea Nitrogen 10 mg/dL (7-17); Calcium 8.3 mg/dL (8.4-10.2); Hemolysis Index 4
--- NOTE | 2018-11-13 08:14 | Discharge Summary ---
Providers - Providers Date of Admission: 11/11/18 23:43 Date of discharge: 11/13/18 Attending physician: ELLIOT ALLEN 11/13/18 07:41 Physical Therapy Evaluation and Treat [CONS] Routine Comment: Reason For Exam: weakness [facility] Reason for admission: s/p Fall [medication induced] Condition: Good Pertinent studies: CXR: no acute abnormality CT chest: no PE,Cirrhosis,spleenomegaly,varices Hospital course: 67-year-old female patient with history of bipolar disorder and cirrhosis who presented to the ED via EMS on account of a fall. Patient stated that she mistakenly took her psych medications together with her blood pressure medications in the morning as opposed to in the evening and felt dizzy. Fall precautions implemented,Symptoms resolved,ambulatory with out symptoms. Today patient is comfortable,Stable at discharge. Discharge diagnosis and management; --s/p fall: Medication-induced Patient took her night medications in the morning accidentally, felt dizzy and fell --Orthostatic hypotension:PT/OT --UTI: On IV antibiotic with Rocephin --Metabolic acidosis On IV fluid, will monitor bicarbonate level --History of chronic hepatitis C virus infection Status post treatment, resolved --Cirrhosis of the liver Secondary to the chronic hepatitis C virus infection outpatient follow-up --Leukopenia Likely secondary to the cirrhosis, --Acute on chronic thrombocytopenia Likely secondary to the cirrhosis Per patient, her baseline platelet level is between 44-50,000 No evidence of active bleeding, will monitor level --Elevated d-dimer; CTA chest negative for acute PE --Hypothyroidism; Continue Synthroid --Bipolar disorder; Continue home medications --Obesity with BMI of 36.2 ; Lifestyle modification --DVT prophylaxis with SCD due to the thrombocytopenia Patient is stable at discharge. Disposition: DC-01 TO HOME OR SELFCARE Time spent for discharge: 32 min Core Measure Documentation - Palliative Care Palliative Care/ Comfort Measures: Not Applicable - Core Measures Any of the following diagnoses?: none Exam - Constitutional Vitals: Temp Pulse Resp BP Pulse Ox 98.4 F 69 20 121/56 95 11/13/18 07:20 11/13/18 07:20 11/13/18 07:20 11/13/18 07:20 11/13/18 07:20 General appearance: Present: no acute distress, well-nourished, obese - EENT Eyes: Present: PERRL, EOM intact - Neck Neck: Present: supple, normal ROM - Respiratory Respiratory effort: normal Respiratory: bilateral: diminished, negative: rales, rhonchi, wheezing - Cardiovascular Rhythm: regular Heart Sounds: Present: S1 & S2 - Extremities Extremities: no ischemia, No edema - Abdominal General gastrointestinal: Present: soft, non-tender, non-distended, normal bowel sounds - Integumentary Integumentary: Present: clear, warm - Musculoskeletal Musculoskeletal: strength equal bilaterally - Psychiatric Psychiatric: appropriate mood/affect, cooperative - Neurologic Neurologic: CNII-XII intact, moves all extremities Plan Activity: advance as tolerated, fall precautions Diet: low salt Additional Instructions: Follow-up follow psychiatrist as scheduled. Fall Precautions Follow up with: BALDEV FIGUEROA MD [Primary Care Provider] - 7 Days
[2018-11-13] MEDS ORDERED: IBUPROFEN PO ONE (09:00)
[2018-11-13] MEDS: ZESTRIL PO SCH (09:36)
[2018-11-13] MEDS: LASIX PO SCH (09:39)
[2018-11-13] MEDS: PROTONIX PO SCH (09:40)
[2018-11-13] MEDS: COGENTIN PO SCH (09:40)
[2018-11-13] MEDS: ROCEPHIN/NS 1 GM/50 ML 1 GM/50 ML BAG IV SCH (09:40)
[2018-11-13] MEDS: SODIUM CHLORIDE FLUSH SYRINGE 10 ML IV SCH (09:41)
[2018-11-13] MEDS ORDERED: GEODON PO ONE (10:00)
[2018-11-13] MEDS ORDERED: IBUPROFEN PO PRN (10:00)
[2018-11-13 14:58] VITALS: BP 113/36
[2018-11-13] MEDS ORDERED: GEODON PO SCH (22:00)
[2018-11-13] MEDS ORDERED: LaMICtal PO SCH (22:00)
== END 2018-11-13 16:00 | disposition home or self-care (01) | DRG 312 ==
LOC: ED 16:19 → 2B-ACE 23:43
PROVIDERS: ADMIT Internal Medicine; ATTEND Internal Medicine
DX: I95.2 Hypotension due to drugs (principal); E87.2 Acidosis; N30.01 Acute cystitis with hematuria; B18.2 Chronic viral hepatitis C; K74.60 Unspecified cirrhosis of liver; E66.9 Obesity, unspecified; D69.6 Thrombocytopenia, unspecified; D72.819 Decreased white blood cell count, unspecified; E03.9 Hypothyroidism, unspecified; F31.9 Bipolar disorder, unspecified; G89.29 Other chronic pain; M54.9 Dorsalgia, unspecified; F17.210 Nicotine dependence, cigarettes, uncomplicated; I10 Essential (primary) hypertension; K21.9 Gastro-esophageal reflux disease without esophagitis; F03.90 Unspecified dementia, unspecified severity, without behavioral disturbance, psychotic disturbance, mood disturbance, and anxiety; Z79.899 Other long term (current) drug therapy; Z68.31 Body mass index [BMI] 31.0-31.9, adult
CPT/HCPCS: 36415; 71045; 71275; 80048; 80053; 80307; 81001; 82140; 82550; 82553; 82962; 83735; 84484; 85007; 85025; 85027; 85379; 87086; 93005; 93010; 99406; G0378; J0692; J0696; J1170; J7030; Q9967